=== PATIENT | male | born 1985 | race Caucasian/White ===

== ENCOUNTER → 2019-12-14 | Outpatient (CLI) | payer SELFPAY | LOC: RAD 18:34 | DX: S99.911A Unspecified injury of right ankle, initial encounter (principal) ==

== ENCOUNTER 2020-01-17 22:51 | Emergency (ER) | payer SELFPAY ==
[~2020-01-17] VITALS: Ht 167.6 cm; Wt 90.9 kg
[2020-01-17] MEDS ORDERED: PRILOSEC 20MG20 MG PO (23:19)
[2020-01-18 00:05] LABS: EOS # 0.1 (0.04-0.40); EOS % 0.9 % (0.0-4.0); HEMATOCRIT 39.9 % (42.0-52.0); HEMOGLOBIN 13.4 g/dL (13.5-18.0); LYMPH# 1.7 (1.50-4.00); MEAN CELL VOLUME 86 fl (78-100); MEAN CORPUSCULAR HEMOGLOBIN 29 pg (27-31); MEAN CORPUSCULAR HGB CONC 34 g/dL (33-37); MEAN PLATELET VOLUME 10.4 fl (7.4-10.4); MONO # 0.7 (0.20-0.80); PLATELET COUNT 185 K/mm3 (130-400); RED BLOOD COUNT 4.66 M/mm3 (4.20-5.60); RED CELL DISTRIBUTION WIDTH 13.8 % (11.5-14.5)
[2020-01-18 00:14] LABS: NEU # 9.5 (1.40-6.50)
[2020-01-18 00:19] LABS: ALBUMIN 4.3 g/dL (3.5-5.0); CALCIUM 8.5 mg/dL (8.3-10.5)
[2020-01-18 00:21] LABS: TOTAL PROTEIN 6.9 g/dL (6.4-8.3)
[2020-01-18 00:23] LABS: TOTAL BILIRUBIN 0.7 mg/dL (0.2-1.2)
[2020-01-18 00:37] LABS: URINE APPEARANCE HAZY; URINE COLOR YELLOW; URINE PROTEIN(semi-quant) NEGATIVE (NEGATIVE)
[2020-01-18 00:38] LABS: URINE BILIRUBIN NEGATIVE (NEGATIVE); URINE BLOOD NEGATIVE (NEGATIVE); URINE GLUCOSE NEGATIVE (NEGATIVE); URINE KETONE 1+ (NEGATIVE); URINE LEUKOCYTE ESTERASE NEGATIVE (NEGATIVE); URINE MUCUS PRESENT (NOT PRESENT); URINE NITRATE NEGATIVE (NEGATIVE); URINE UROBILINOGEN NORMAL (NORMAL)
[2020-01-18 01:48] VITALS: BP 132/81
== END 2020-01-18 01:54 | disposition home or self-care (01) ==
LOC: ED 22:51
PROVIDERS: Family Medicine
DX: R25.2 Cramp and spasm (principal); E87.6 Hypokalemia; K21.9 Gastro-esophageal reflux disease without esophagitis
CPT/HCPCS: J7030